=== PATIENT | female | born 1985 | race Caucasian/White ===

== ENCOUNTER 2020-06-15 16:11 | Emergency (ER) | payer BC, OTHER ==
[~2020-06-15 16:11] MED LIST: ALL DAY ALLERGY10 M2 PO; AZITHROMYCIN250 MG PO; BENTYL 20MG TAB20 MG PO; ELAVIL 10 MG TA10 MG PO; ESCITALOPRAM OX20 MG PO; MEDROL4 MG PO; PREDNISONE 50 M50 MG PO; ZANTAC150 MG PO; ZOFRAN ODT 4 MG4 MG SL
[2020-06-15 19:10] LABS: HEMOGLOBIN 13.3 gm/dl (12.3-15.3); RED BLOOD COUNT 4.51 M/UL (4.00-5.10); WHITE BLOOD COUNT 9.5 K/UL (4.5-11.0)
[2020-06-15 19:40] LABS: BUN/CREATININE RATIO 16 (0-10)
== END 2020-06-15 20:50 | disposition home or self-care (01) ==
LOC: ER1 16:11
PROVIDERS: Physician Assistant
DX: R00.2 Palpitations (principal); R07.89 Other chest pain; R22.1 Localized swelling, mass and lump, neck; Z88.0 Allergy status to penicillin
CPT/HCPCS: 71045; 80053; 82550; 82553; 83874; 83880; 84439; 84443; 84484; 84703; 85025; 85379; 85610; 85730; 93005; 99285

== ENCOUNTER → 2020-07-03 | Outpatient (CLI) | payer BC, OTHER | LOC: US 10:30 → KOH-I 11:30 | DX: R13.10 Dysphagia, unspecified (principal) | CPT/HCPCS: 76536 ==

== ENCOUNTER → 2020-08-17 | Outpatient (CLI) | payer BC, OTHER | LOC: ECHO 08-02 13:30 | DX: R07.89 Other chest pain (principal); R00.2 Palpitations; I07.1 Rheumatic tricuspid insufficiency | CPT/HCPCS: ECHO; 93017; 93306 ==

== ENCOUNTER → 2021-07-13 | Outpatient (CLI) | payer BC, OTHER | LOC: CT 07:37 | DX: R22.1 Localized swelling, mass and lump, neck (principal) | CPT/HCPCS: 70491; Q9967 ==

== ENCOUNTER 2022-01-25 18:00 | Emergency (ER) | payer BC, OTHER | END 2022-01-25 19:15 | disposition home or self-care (01) | LOC: ER1 18:00 | DX: S61.211A Laceration without foreign body of left index finger without damage to nail, initial encounter (principal); Z90.89 Acquired absence of other organs; Z90.49 Acquired absence of other specified parts of digestive tract; Z88.0 Allergy status to penicillin; Z90.710 Acquired absence of both cervix and uterus; Z23 Encounter for immunization; X58.XXXA Exposure to other specified factors, initial encounter | CPT/HCPCS: 90471; 90715; 99282 ==

== ENCOUNTER → 2022-01-30 | Outpatient (CLI) | payer BC, OTHER | LOC: KOH-I 16:19 | DX: R06.02 Shortness of breath (principal) | CPT/HCPCS: 71046 ==